=== PATIENT | female | born 1945 | race Caucasian/White ===

== ENCOUNTER 2021-06-07 09:31 | Day surgery (SDC) | payer MEDICARE, OTHER ==
[~2021-06-07] VITALS: Ht 167.6 cm; Wt 81.5 kg
[2021-06-07 10:31] VITALS: BP 142/71; PULSE 66; TEMP 97.6
[2021-06-07] MEDS ORDERED: TIROSINT50 MC1 PO (10:50)
[2021-06-07] MEDS ORDERED: HCTZ 25MG TAB25 MG PO (10:50)
[2021-06-07] MEDS ORDERED: ZIAC 10/6.25M1 UDTAB (10:51)
[2021-06-07] MEDS ORDERED: COZAAR 50MG50 MG/TAB PO (11:05)
[2021-06-07] MEDS ORDERED: ZIAC 10/6.25M1 UDTAB PO (11:05)
[2021-06-07] MEDS ORDERED: ELIQUIS 5MG PO (11:06)
[2021-06-07] MEDS ORDERED: KLOR-CON20 MEQ PO (11:07)
[2021-06-07] MEDS ORDERED: CENTRUM SILVER1 TAB PO (11:08)
[2021-06-07] MEDS ORDERED: CALCIUM 600/VIT1 CA1 PO (11:08)
[2021-06-07] MEDS ORDERED: CALCIUM 600MG+D1 TAB PO (11:09)
[2021-06-07] MEDS ORDERED: ZYRTEC 10MG10 MG PO (11:10)
[2021-06-07 11:45] VITALS: BP 135/67; PULSE 52
--- NOTE | 2021-06-07 11:45 | NUR ---
Patient returns to bay 7 per cart and transfers from cart to recliner with two person assist. IV fluids infusing via right port a catheter and site is free of redness. Drowsy and allowed to rest.
[2021-06-07 12:00] VITALS: BP 131/95; PULSE 51
--- NOTE | 2021-06-07 12:00 | NUR ---
More awake and sipping on coffee. Daugther in room. IV fluids continue to infuse.
[2021-06-07 12:15] VITALS: BP 106/75; PULSE 52
--- NOTE | 2021-06-07 12:15 | NUR ---
Dr. Cedillo here to talk with the patient and all questions answered. Instructed to hold Eliquis for an additional 10 days. Port a catheter deaccessed. Site is free of redness or swelling. Port flushed with normal saline and heparin 500units per protocol prior to de accessing. Site covered with bandaid. Assisted patient with dressisng. Daughter in room and voices understanding of follow up and home cares.
--- NOTE | 2021-06-07 12:35 | NUR ---
Patient dismissed to home driven by daughter and assisted into vehicle with all instructions in hand.
== END 2021-06-07 12:49 | disposition home or self-care (01) ==
LOC: SDCO 09:31
DX: Z12.11 Encounter for screening for malignant neoplasm of colon (principal); D12.3 Benign neoplasm of transverse colon; D12.0 Benign neoplasm of cecum; I10 Essential (primary) hypertension; E03.9 Hypothyroidism, unspecified; E66.9 Obesity, unspecified; Z90.710 Acquired absence of both cervix and uterus; Z98.0 Intestinal bypass and anastomosis status; Z85.038 Personal history of other malignant neoplasm of large intestine; Z20.822 Contact with and (suspected) exposure to COVID-19
CPT/HCPCS: J1644; J2405; J2704; J7120

== ENCOUNTER 2022-07-04 08:53 | Day surgery (SDC) | payer MEDICARE, OTHER ==
[~2022-07-04] VITALS: Ht 163.8 cm; Wt 88.3 kg
[~2022-07-04 08:53] MED LIST: CALCIUM 600/VIT1 CA1 PO; CALCIUM 600MG+D1 TAB PO; CENTRUM SILVER1 TAB PO; COZAAR 50MG50 MG/TAB PO; ELIQUIS 5MG PO; HCTZ 25MG TAB25 MG PO; KLOR-CON20 MEQ PO; TIROSINT50 MC1 PO; ZIAC 10/6.25M1 UDTAB; ZIAC 10/6.25M1 UDTAB PO; ZYRTEC 10MG10 MG PO
[2022-07-04 10:09] VITALS: BP 158/84; PULSE 65; TEMP 97.1
[2022-07-04 12:00] VITALS: BP 171/83; PULSE 67
--- NOTE | 2022-07-04 12:09 | NUR ---
1200 - PT arrives and was settled by Leslie DAWKINS. Verbal report then obtained. PT provided snack and drink; denies pain/nausea, and states "not feeling very hungry". Call mari is within reach and visitor is present. PT asked for depends to wear home. Non-slip socks remain on.
[2022-07-04 12:15] VITALS: BP 171/71; PULSE 61
--- NOTE | 2022-07-04 12:17 | NUR ---
1215 - Vitals obtained. is speaking w/ PT; call mari is within reach. PT has finished snack and drink; denies nasuea/pain and expressed desire to be discharged.
[2022-07-04 12:30] VITALS: BP 166/70; PULSE 64
--- NOTE | 2022-07-04 12:33 | NUR ---
1230 - Vitals obtained. RN provided x2 depends. IV discontinued. Catheter tip intact and pressure bandage applied; no redness or swelling noted. DC instructions and educational material reviewed w/ PT who verbalized understanding and signed the related paperwork. Questions answered to PT satisfaction. PT refused RN assistance changing into pesonal clothes; call mari within reach and visitor remains present.
--- NOTE | 2022-07-04 12:43 | NUR ---
1240 - PT dismissed from endo via wheelchair to PT entrence by Marina DAWKINS. PT has DC packet and personal belonings and was transferred into the care of her daughter, who is driving private car.
== END 2022-07-04 12:45 | disposition home or self-care (01) ==
LOC: SDCO 08:53
DX: Z12.11 Encounter for screening for malignant neoplasm of colon (principal); K57.30 Diverticulosis of large intestine without perforation or abscess without bleeding; I10 Essential (primary) hypertension; Z98.0 Intestinal bypass and anastomosis status; Z85.038 Personal history of other malignant neoplasm of large intestine; Z86.010 Personal history of colon polyps
CPT/HCPCS: J2704; J7030

== ENCOUNTER 2024-07-22 09:12 | Day surgery (SDC) | payer MEDICARE, OTHER ==
[~2024-07-22] VITALS: Ht 167.6 cm; Wt 84.2 kg
[~2024-07-22 09:12] MED LIST changes: +LR 1,000 ML IV SCH; +Ondansetron 4 MG/2 ML VIAL IV PRN
[2024-07-22 09:54] VITALS: BP 188/80; PULSE 60; TEMP 96
--- NOTE | 2024-07-22 10:26 | NUR ---
Patient admitted to [facility] [place] [facility]. Admission assessments complete. Consent signed. Oriented to room and call light. Medications, pharmacy, and allergies confirmed. Daughter at bedside. Per patient request, portacath to right chest accessed wtih 1" kessler needle, blood return noted. IV fluids infusing without difficulty. Pt reports last eliquis taken on 07/18/24. Call light within reach.
[2024-07-22] MEDS ORDERED: MAG OX 250 PO (11:25)
[2024-07-22] MEDS ORDERED: VITAMIN B-625 MG PO (11:25)
[2024-07-22] MEDS ORDERED: NATURAL E400 IU PO (11:25)
[2024-07-22] MEDS ORDERED: TYLENOL 325MG325 MG PO (11:26)
[2024-07-22 12:05] VITALS: BP 184/85; PULSE 58
--- NOTE | 2024-07-22 12:05 | NUR ---
1205: Returns to room 6 per cart. Awake, alert, resp unlabored, ambulates to recliner with standby assist. Denies nausea or abd pain. Vital signs obtained. Call light within reach. Provided coffee and crackers, pt's daughter in the room. 1224: Port deaccessed and flushed by JUANCHO Quezada. 1239: Discharge instructions reviewed with understanding verbalized. Copy of instructions provided to patient. 1245: Dr Cedillo here to visit with patient.
[2024-07-22 12:20] VITALS: BP 148/62; PULSE 64
== END 2024-07-22 12:50 | disposition home or self-care (01) ==
LOC: SDCO 09:12
DX: Z12.11 Encounter for screening for malignant neoplasm of colon (principal); D12.3 Benign neoplasm of transverse colon; K63.5 Polyp of colon; K21.00 Gastro-esophageal reflux disease with esophagitis, without bleeding; K44.9 Diaphragmatic hernia without obstruction or gangrene; E66.9 Obesity, unspecified; Z98.0 Intestinal bypass and anastomosis status; Z86.718 Personal history of other venous thrombosis and embolism; Z86.711 Personal history of pulmonary embolism; Z85.038 Personal history of other malignant neoplasm of large intestine; Z85.828 Personal history of other malignant neoplasm of skin; Z15.09 Genetic susceptibility to other malignant neoplasm; Z79.01 Long term (current) use of anticoagulants; Z80.0 Family history of malignant neoplasm of digestive organs
CPT/HCPCS: J2704; J7120